=== PATIENT | female | born 1985 | race Caucasian/White ===

== ENCOUNTER 2017-10-18 00:24 | Emergency (ER) | payer MEDICAID, SELFPAY ==
[2017-10-18 00:26] VITALS: BP 107/61; PULSE 76; RESP 16; TEMP 36.8; O2SAT 98; BMI 18.0
--- NOTE | 2017-10-18 00:48 | ED.VISSUMM ---
- ER Visit Summary Date of Service: 10/18/17 Chief Complaint: Boils History of Present Illness: The patient is a 32 F who presents with 2 boils on my vagina. She does have a history of prior abscesses. She first noticed an area of redness swelling and tenderness about 1 week ago. However more recently she noticed a second area and the second boils was concerned and presented here. She has no systemic symptoms. She denies fevers nausea vomiting diarrhea abdominal pain chest pain shortness of breath. Physical Examination: Afebrile vitals are normal Heart regular rate and rhythm Lungs clear Abdomen soft Patient has a 1 cm area of induration on the right labia majora externally this is not fluctuant there is some surrounding erythema consistent with cellulitis she has a second area of induration at the left groin and extending towards the buttock that does not involve the vagina with surrounding cellulitis there is no crepitus no lymphangitic streaking it is warm to the touch Test Results: Not indicated Emergency Department Course and Treatment: Patient appears to have cellulitis of the left groin and buttock as well as an early abscess of the right labia majora. I do not believe this is amenable to incision given that it is just firm and indurated without fluctuance. She is allergic to Bactrim. We will treat with Clindamycin. She was referred to [facility]. She understands return for new or worsening symptoms. She was instructed on specific signs and symptoms to monitor for and she was discharged home. Treatment Plan: [] Disposition: Discharge Impression: Abscess Cellulitis left groin and buttock This note was generated with [employer] dictation software. It may contain incorrect words, spelling, and punctuation that were not noted in review of the chart prior to signing ED Disposition - Plan for ED Patient: Chief Complaint: Abscess
--- NOTE | 2017-10-18 00:53 | ED.DEP ---
ED Disposition - Plan for ED Patient: Chief Complaint: Abscess Instructions: ED Infec Skin Cellulitis, ED Staph Infec Abx Tx Only Prescriptions: Naproxen [Naprosyn] 500 mg PO BID #20 tab Clindamycin [Cleocin] 300 mg PO 4X/DAY #80 cap Referrals: Stefanie Luciano MD [STAFF PHYSICIAN] -
[2017-10-18 01:07] VITALS: BP 110/70; PULSE 68; RESP 16; O2SAT 98
== END 2017-10-18 01:08 | disposition home or self-care (01) ==
PROVIDERS: Emergency Provider Emergency Medicine
DX: L03.314 Cellulitis of groin (principal); L03.317 Cellulitis of buttock; Z88.3 Allergy status to other anti-infective agents; Z72.0 Tobacco use
CPT/HCPCS: 99282